=== PATIENT | female | born 1975 | race Caucasian/White ===

== ENCOUNTER 2019-12-20 09:52 | Emergency (ER) | payer OTHER ==
[2019-12-20] MEDS ORDERED: ONDANSETRON 4 MG/2 ML VIAL ONE (10:26)
[2019-12-20] MEDS ORDERED: MORPHINE 4 MG/ML SYR ONE (10:26)
[2019-12-20] MEDS ORDERED: NA CHLORIDE 0.9% 1,000 ML ONE (10:27)
[2019-12-20] MEDS ORDERED: TETANUS & DIPHTHERIA TOX,ADULT 0.5 ML VIAL ONE (10:27)
[2019-12-20 10:40] LABS: Absolute Lymphocytes (CBC) 1.5 K/uL (0.7-4.9); Basophils % 0.7 % (0-1.3); Hematocrit 45.4 % (36.0-45.0); Lymphocytes % 16.7 % (15.3-44.8); MPV 10.2 fL (7.6-11.3); RBC Red Blood Cell Count 4.98 M/uL (3.86-4.86)
[2019-12-20 10:45] LABS: Protime INR 0.98
[2019-12-20 10:51] LABS: Albumin 3.9 g/dL (3.4-5.0); Bilirubin Total 1.1 mg/dL (0.2-1.0); Potassium 3.6 mmol/L (3.5-5.1); Protein, Total 8.2 g/dL (6.4-8.2)
--- NOTE | 2019-12-20 11:15 | ER ---
Nurse's Notes [facility] Name: Emily Reed Age: 44 yrs Sex: Female : 1975 Arrival Date: 12/20/2019 Time: 09:53 Bed 2 Private MD: Diagnosis: Toxic effect of snake venom;Toxic effect of unspecified snake venom-LOCAL SWELLING GRADE 1, IMPROVED Presentation: 12/19 10:01 Chief complaint: Patient states: "I got bitten by a snake about 15 minutes ago and I aa5 think it was a copperhead". Swelling and bite bertram noted to top of right foot. 10:01 Coronavirus screen: Proceed with normal triage. Patient denies a cough. Patient denies aa5 shortness of breath or difficulty breathing. Patient denies measured and/or subjective temperature greater than 100.4F prior to today's visit. Patient denies travel on a cruise ship or to a country [facility] currently lists as an affected area. Patient denies contact with known and/or suspected case of COVID-19. Ebola Screen: Patient negative for fever greater than or equal to 101.5 degrees Fahrenheit, and additional compatible Ebola Virus Disease symptoms. Initial Sepsis Screen: Does the patient meet any 2 criteria? No. Patient's initial sepsis screen is negative. Does the patient have a suspected source of infection? No. Patient's initial sepsis screen is negative. Risk Assessment: Do you want to hurt yourself or someone else? Patient reports no desire to harm self or others. Onset of symptoms was December 20, 2019. 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 - Social history:: Smoking status: Patient denies any tobacco usage or history of. - Family history:: not pertinent. Screenin:20 Abuse screen: Denies threats or abuse. Nutritional screening: No deficits noted. em Tuberculosis screening: No symptoms or risk factors identified. Fall Risk None identified. Assessment: 10:20 General: Appears in no apparent distress. comfortable, Behavior is calm, cooperative, em appropriate for age, Denies fever. Pain: Complains of pain in dorsum of right foot Pain currently is 6 out of 10 on a pain scale. Neuro: Level of Consciousness is awake, alert, obeys commands, Oriented to person, place, time, situation, Appropriate for age. Cardiovascular: Capillary refill < 3 seconds Patient's skin is warm and dry. Respiratory: Airway is patent Respiratory effort is even, unlabored, Respiratory pattern is regular, symmetrical. Derm: Skin is intact, is healthy with good turgor, Skin is pink, warm \\T\\ dry. two puncture wounds noted to top of the right foot, mild swelling and redness, outlined the redness and swelling with surgical marker, will continue to monitor. Musculoskeletal: Capillary refill < 3 seconds, Range of motion: intact in all extremities. 11:10 Reassessment: Patient appears in no apparent distress at this time. Patient and/or em family updated on plan of care and expected duration. Pain level reassessed. Patient is alert, oriented x 3, equal unlabored respirations, skin warm/dry/pink. swelling unchanged, Dr Oakes at bedside, pt instructed to keep foot elevated, instructed to return if swelling, redness increases, will continue to monitor until 12 PM. 12:05 Reassessment: Patient appears in no apparent distress at this time. Patient and/or em family updated on plan of care and expected duration. Pain level reassessed. no change in redness or swelling. Vital Signs: 10:01 Weight 63.5 kg (R); Height 5 ft. 4 in. (162.56 cm) (R); Pain 6/10; aa5 10:06 BP 152 / 120; Pulse 68; Resp 18; Temp 98.1(O); Pulse Ox 99% on R/A; dh3 10:40 BP 159 / 111; Pulse 69; em 11:24 BP 153 / 107; Pulse 59; Resp 18; Pulse Ox 100% on R/A; Pain 3/10; em 10:01 Body Mass Index 24.03 (63.50 kg, 162.56 cm) aa5 ED Course: 09:53 Patient arrived in ED. ag5 09:55 Sabas Oakes MD is Attending Physician. preston 10:01 Arm band placed on Patient placed in an exam room, on a stretcher. aa5 10:04 Kan Servin, RN is Primary Nurse. em 10:07 Triage completed. aa5 10:20 Patient has correct armband on for positive identification. Bed in low position. Call em light in reach. Pulse ox on. NIBP on. 10:20 Initial lab(s) drawn, by me, sent to lab. Inserted saline lock: 20 gauge in right dh3 antecubital area, using aseptic technique. Blood collected. 11:01 Foot Right 3 View XRAY In Process Unspecified. EDMS 11:11 Stan Melissa MD is Referral Physician. [facility] [place] 12:16 No provider procedures requiring assistance completed. IV discontinued, intact, em bleeding controlled, No redness/swelling at site. Pressure dressing applied. 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 Exp: em 10/04/2021. Lot #: [id number]. } Route: IM; Site: left deltoid; 10:38 Drug: NS 0.9% 1000 ml Route: IV; Rate: 1 bolus; Site: right antecubital; em 10:38 Drug: morphine 4 mg Route: IVP; Site: right antecubital; em Outcome: 11:14 Discharge ordered by . [facility] 12:16 Discharged to home via wheelchair, with family. em 12:16 Condition: stable 12:16 Discharge instructions given to patient, Instructed on discharge instructions, follow up and referral plans. medication usage, Demonstrated understanding of instructions, follow-up care, medications, Prescriptions given X 2. 12:17 Patient left the ED. em Signatures: Dispatcher [employer] EDMT Sabas Oakes MD MD cha Munoz, Edgar, RN RN Iris Aguilar, RN RN 5 Salena Gomez [facility] Reji Abdul Corrections: (The following items were deleted from the chart) 10:29 10:06 BP 152 / 120; Temp 98.1F Oral; [place] [id number]
--- NOTE | 2019-12-20 11:15 | EDPHYS ---
Physician Documentation [facility] Name: Emily Reed Age: 44 yrs Sex: Female : 1975 Arrival Date: 12/20/2019 Time: 09:53 Bed 2 Private MD: ED Physician Sabas Oakes HPI: 12/19 10:12 This 44 yrs old Female presents to ER via Wheelchair with complaints of Snake preston bite. 10:12 by a snake. Onset: The symptoms/episode began/occurred just prior to arrival, .5 preston hour(s) ago. Animal information: The snake had the markings of a copperhead snake. Secondary to the bite the patient reports erythema, pain, swelling. Associated signs and symptoms: The patient has no apparent associated signs or symptoms. Severity of symptoms: At their worst the symptoms were moderate, in the emergency department the symptoms are unchanged. The patient has not experienced similar symptoms in the past. 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 - Social history:: Smoking status: Patient denies any tobacco usage or history of. - Family history:: not pertinent. ROS: 10:12 Constitutional: Negative for fever, chills, and weight loss, Eyes: Negative for injury, preston pain, redness, and discharge, ENT: Negative for injury, pain, and discharge, Neck: Negative for injury, pain, and swelling, Cardiovascular: Negative for chest pain, palpitations, and edema, Respiratory: Negative for shortness of breath, cough, wheezing, and pleuritic chest pain, Abdomen/GI: Negative for abdominal pain, nausea, vomiting, diarrhea, and constipation, Back: Negative for injury and pain, : Negative for injury, bleeding, discharge, and swelling, Neuro: Negative for headache, weakness, numbness, tingling, and seizure, Psych: Negative for depression, anxiety, suicide ideation, homicidal ideation, and hallucinations, Allergy/Immunology: Negative for hives, rash, and allergies, Endocrine: Negative for neck swelling, polydipsia, polyuria, polyphagia, and marked weight changes, Hematologic/Lymphatic: Negative for swollen nodes, abnormal bleeding, and unusual bruising. 10:12 MS/extremity: Positive for erythema, pain, puncture, swelling, tenderness. Exam: 10:12 Constitutional: This is a well developed, well nourished patient who is awake, alert, preston and in no acute distress. Head/Face: Normocephalic, atraumatic. Eyes: Pupils equal round and reactive to light, extra-ocular motions intact. Lids and lashes normal. Conjunctiva and sclera are non-icteric and not injected. Cornea within normal limits. Periorbital areas with no swelling, redness, or edema. ENT: Nares patent. No nasal discharge, no septal abnormalities noted. Tympanic membranes are normal and external auditory canals are clear. Oropharynx with no redness, swelling, or masses, exudates, or evidence of obstruction, uvula midline. Mucous membranes moist. Neck: Trachea midline, no thyromegaly or masses palpated, and no cervical lymphadenopathy. Supple, full range of motion without nuchal rigidity, or vertebral point tenderness. No Meningismus. Chest/axilla: Normal chest wall appearance and motion. Nontender with no deformity. No lesions are appreciated. Cardiovascular: Regular rate and rhythm with a normal S1 and S2. No gallops, murmurs, or rubs. Normal PMI, no JVD. No pulse deficits. Respiratory: Lungs have equal breath sounds bilaterally, clear to auscultation and percussion. No rales, rhonchi or wheezes noted. No increased work of breathing, no retractions or nasal flaring. Abdomen/GI: Soft, non-tender, with normal bowel sounds. No distension or tympany. No guarding or rebound. No evidence of tenderness throughout. Back: No spinal tenderness. No costovertebral tenderness. Full range of motion. Skin: Warm, dry with normal turgor. Normal color with no rashes, no lesions, and no evidence of cellulitis. Neuro: Awake and alert, GCS 15, oriented to person, place, time, and situation. Cranial nerves II-XII grossly intact. Motor strength 5/5 in all extremities. Sensory grossly intact. Cerebellar exam normal. Normal gait. Psych: Awake, alert, with orientation to person, place and time. Behavior, mood, and affect are within normal limits. 10:12 Musculoskeletal/extremity: ROM: full active range of motion, full passive range of motion, Circulation is intact in all extremities. Sensation intact. Compartment Syndrome exam of affected extremity: is normal. DVT Exam: negative Homans' sign noted on exam, no appreciated bluish discoloration, no erythema, no increased warmth, pain, swelling, tenderness. Vital Signs: 10:01 Weight 63.5 kg (R); Height 5 ft. 4 in. (162.56 cm) (R); Pain 6/10; aa5 10:06 BP 152 / 120; Pulse 68; Resp 18; Temp 98.1(O); Pulse Ox 99% on R/A; dh3 10:40 BP 159 / 111; Pulse 69; em 11:24 BP 153 / 107; Pulse 59; Resp 18; Pulse Ox 100% on R/A; Pain 3/10; em 10:01 Body Mass Index 24.03 (63.50 kg, 162.56 cm) aa5 MDM: 10:01 Patient medically screened. preston 10:14 Differential diagnosis: superficial laceration, tendon injury, cellulitis. Data preston reviewed: vital signs, nurses notes, lab test result(s), radiologic studies, plain films. Data interpreted: engine monitor: rate is 95 beats/min, Pulse oximetry: on room air is 100 %. Test interpretation: by ED physician or midlevel provider: plain radiologic studies. Counseling: I had a detailed discussion with the patient and/or guardian regarding: the historical points, exam findings, and any diagnostic results supporting the discharge/admit diagnosis, lab results, radiology results. ED course: copperhead bite 30 min [employer], top of right foot. 11:09 Medication response: Zofran markedly relieved the patient's nausea. ED course: SWELLING preston LESS AT 2 HOURS, PAIN MINIMAL, NO SYSTEMIC EFFECTS, LABS NORMAL. 12:11 ED course: 1218 pm , minimal swelling, pain nearly gone completely, no systemic preston symptoms. dc, pt will return if sym worsen. 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 Exp: em 10/04/2021. Lot #: [id number]. } Route: IM; Site: left deltoid; 10:38 Drug: NS 0.9% 1000 ml Route: IV; Rate: 1 bolus; Site: right antecubital; em 10:38 Drug: morphine 4 mg Route: IVP; Site: right antecubital; em Disposition: 12/20/19 11:14 Discharged to Home. Impression: Toxic effect of snake venom, Toxic effect of unspecified snake venom - LOCAL SWELLING GRADE 1, IMPROVED. - Condition is Stable. - Discharge Instructions: Snake Bite. - Prescriptions for Ibuprofen 600 mg Oral Tablet - take 1 tablet by ORAL route every 8 hours As needed take with food; 21 tablet. Keflex 500 mg Oral Capsule - take 1 capsule by ORAL route every 6 hours for 7 days; 28 capsule. - Medication Reconciliation Form, Thank You Letter, Antibiotic Education, Prescription Opioid Use form. - Follow up: Private Physician; When: 1 - 2 days; Reason: Recheck today's complaints, Continuance of care, Re-evaluation by your physician. Follow up: Stan Melissa MD; When: 1 - 2 days; Reason: Recheck today's complaints, Re-evaluation by your physician. - Problem is new. - Symptoms have improved. Critical care time excluding procedures: 12:11 Critical care time: Bedside Care: 20 minutes. Total time: 20 minutes [facility] Signatures: Dispatcher [employer] Sabas Avery MD MD cha Munoz, Edgar, RN RN Iris Fenton RN RN aa5 Corrections: (The following items were deleted from the chart) 12:17 11:14 12/20/2019 11:14 Discharged to Home. Impression: Toxic effect of snake venom; em Toxic effect of unspecified snake venom - LOCAL SWELLING GRADE 1, IMPROVED. Condition is Stable. Forms are Medication Reconciliation Form, Thank You Letter, Antibiotic Education, Prescription Opioid Use. Follow up: Private Physician; When: 1 - 2 days; Reason: Recheck today's complaints, Continuance of care, Re-evaluation by your physician. Follow up: Dr. Stan Melissa; When: 1 - 2 days; Reason: Recheck today's complaints, Re-evaluation by your physician. Problem is new. Symptoms have improved. preston
--- NOTE | 2019-12-20 12:25 | RAD REPORT ---
EXAM DESCRIPTION: RAD - Foot Right 3 View - 12/20/2019 11:01 am CLINICAL HISTORY: snake bite;Pain;Swelling COMPARISON: No comparisons FINDINGS: No fracture, dislocation or periosteal reaction. Small crescent-shaped bony density along the dorsal margin of the tarsal-metatarsal junction is not believed to be an acute bone process. This is probably an area of degenerative change. No air or foreign body in the soft tissues. IMPRESSION: No air or foreign body in the soft tissues. No acute bone finding.
[2019-12-20 12:32] VITALS: TEMP 98.1
[2019-12-20 12:36] VITALS: BP 153/107; O2SAT 100
== END 2019-12-20 12:17 | disposition home or self-care (01) ==
LOC: ER 09:52
DX: T63.091A Toxic effect of venom of other snake, accidental (unintentional), initial encounter (principal); S90.871A Other superficial bite of right foot, initial encounter; Y92.9 Unspecified place or not applicable; Y93.9 Activity, unspecified; Z23 Encounter for immunization; I10 Essential (primary) hypertension
CPT/HCPCS: 85025; 36415; 85384; 85610; 80053; 73630; 90471; 90714; 96375; 96374; 99284; J7030; J2405